=== PATIENT | female | born 1975 | race Caucasian/White ===

== ENCOUNTER 2023-03-06 13:28 | Outpatient (CLI) | payer MEDICARE, BC, SELFPAY | END 2023-03-06 13:29 | disposition home or self-care (01) | LOC: FRMREF 13:28 | PROVIDERS: Visit Provider Dermatology | DX: L30.9 Dermatitis, unspecified (principal); Z51.81 Encounter for therapeutic drug level monitoring | CPT/HCPCS: 80076 ==

== ENCOUNTER 2023-04-12 10:22 | Outpatient (CLI) | payer MEDICARE, BC, SELFPAY | END 2023-04-12 10:23 | disposition home or self-care (01) | LOC: FRMREF 10:24 | PROVIDERS: Visit Provider Dermatology | DX: L40.9 Psoriasis, unspecified (principal); Z79.631 Long term (current) use of antimetabolite agent | CPT/HCPCS: 80076 ==